=== PATIENT | female | born 1955 | race Hispanic/Latino ===

== ENCOUNTER 2022-11-01 10:27 | Emergency (ER) | payer MEDICARE ==
[~2022-11-01] VITALS: Ht 154.9 cm; Wt 59.0 kg
[2022-11-01] MEDS ORDERED: MUPIROCIN22 GM TOP ×2 (11:33→11:35)
== END 2022-11-01 12:00 | disposition home or self-care (01) ==
LOC: ER 11:19
DX: E11.621 Type 2 diabetes mellitus with foot ulcer (principal); E11.622 Type 2 diabetes mellitus with other skin ulcer; L97.529 Non-pressure chronic ulcer of other part of left foot with unspecified severity; L97.829 Non-pressure chronic ulcer of other part of left lower leg with unspecified severity; I10 Essential (primary) hypertension
CPT/HCPCS: 99282